=== PATIENT | female | born 1965 | race Caucasian/White ===

== ENCOUNTER 2016-12-16 21:10 | Emergency (ER) | payer OTHER ==
--- NOTE | ~2016-12-16 | CR72 ---
[facility] A Service of [facility] & [facility] RADIOLOGY TEXT RESULTS PATIENT: MAGALI LATHAM LOCATION: CFTX : 63 UNIT #: [id number] AGE: [address]: LUCHO SAMPSON APRN SEX: F ORDER DR: [id number] [facility] [address] [place], [place] [address] [id number] E MR#: [id number] Acc #: [id number] NAME: MAGALI LATHAM. : 1965 SEX: F STUDY DATE/TIME: 12/16/2016 20:55 UNIT: [facility] ROOM: STUDY DESCRIPTION: CR Chest Single View Portable Attending Physician: Lucho Sampson Aprn Ordering Physician: Lucho Sampson Aprn Primary Care Physician: Mirza Carcamo M.D. MEDICAL IMAGING REPORT This report is preliminary unless electronic signature is present EXAM Portable chest. INDICATIONS 51-year female with cough, shortness breath, and wheezing since Friday. COMPARISON Comparison with 05/17/2015 FINDINGS There are bilateral interstitial opacities and bronchial wall thickening. There are also some patchy airspace opacities mainly in the left perihilar region. Differential diagnosis includes an infectious or inflammatory process or possibly edema. Correlate clinically. Heart size normal. IMPRESSION Bilateral interstitial opacities. There are some patchy airspace opacities as well, mainly in the left hilar region. Findings may reflect an infectious or inflammatory process or possibly edema. Follow up to clearing is recommended. Dictated by... Braden Gongora M.D. THIS IS AN ELECTRONICALLY VERIFIED REPORT Braden Gongora M.D. at 12/17/2016 10:05 AM NADEGE/arabella TD: 12/17/2016 09:08 JOB #: [id number] MEDICAL IMAGING REPORT COPY
[~2016-12-16 21:10] MED LIST: ALBUTEROL INH; ALBUTEROL MDI INH; AMLODIPINE BESIL1 GM PO; AMLODIPINE BESYL5 MG PO; ASPIRIN EC81 M1 PO; ATORVASTATIN CA40 MG PO; BAYER CHEWABLE81 MG PO; CLOPIDOGREL75 MG PO; DYAZIDE 37.5/251 CAP PO; FLUOXETINE HCL40 M1 PO; FUROSEMIDE40 MG PO; HYDROCHLOROTHIA25 MG PO; K-DUR20 ME1 PO; LEVAQUIN PO; LEVAQUIN750 MG PO; LISINOPRIL PO; NORVASC PO; NORVASC10 MG PO; PLAVIX PO; PRAVACHOL PO; PREDNISONE10 MG/DOSE PO; PRILOSEC20 MG PO; PROAIR HFA8.5 GM IH; PROAIR HFA8.5 GM INH; PROZAC40 M1 PO; PROZAC40 MG PO; VIBRAMYCIN100 M1 PO; VOLTAREN50 MG PO; ZESTRIL40 MG PO
== END 2016-12-16 23:37 | disposition home or self-care (01) ==
LOC: CFTX 21:10
DX: J20.9 Acute bronchitis, unspecified (principal); I50.9 Heart failure, unspecified; I10 Essential (primary) hypertension; E78.5 Hyperlipidemia, unspecified; K21.9 Gastro-esophageal reflux disease without esophagitis; F32.9 Major depressive disorder, single episode, unspecified; Z88.2 Allergy status to sulfonamides; Z88.8 Allergy status to other drugs, medicaments and biological substances
CPT/HCPCS: 36415; 71010; 83880; 94640; 99283